=== PATIENT | male | born 2000 | race Caucasian/White ===

== ENCOUNTER 2025-09-22 21:24 | Emergency (ER) | payer OTHER ==
[~2025-09-22] VITALS: Ht 175.3 cm; Wt 73.9 kg
[2025-09-23 04:38] LABS: BASO # 0.1 10^3/uL (0.0-0.2); BASO % 1.2 % (0.0-1.0); EOS # 0.1 10^3/uL (0.0-0.5); EOS % 2.8 % (0.0-3.0); LYMPH # 1.7 10^3/uL (1.5-5.0); LYMPH % 34.3 % (24.0-44.0); MONO # 0.5 10^3/uL (0.0-0.8); MONO % 10.1 % (2.0-8.0); NEUTROPHILS # 2.6 10^3/uL (1.5-8.5); NEUTROPHILS % 51.2 % (36.0-66.0); PLATELET COUNT, AUTOMATED 154 10^3/uL (150-450)
[2025-09-23 05:02] LABS: C REACTIVE PROTEIN QUANTITATIV < 0.50 MG/DL (<1.0); CALCIUM LEVEL 9.2 MG/DL (8.5-10.1); CARBON DIOXIDE LEVEL 25 MMOL/L (20-31); CHLORIDE LEVEL 103 MMOL/L (98-107); CREATININE FOR GFR 0.74 MG/DL (0.70-1.30); GLOMERULAR FILTRATION RATE > 90.0 (>60); POTASSIUM SERUM 3.9 MMOL/L (3.5-5.1); SODIUM LEVEL 142 MMOL/L (136-145)
[2025-09-23] MEDS ORDERED: CEPH500C PO (06:28)
[2025-09-23] MEDS: KETOROLAC 30 MG/ML 1 ML VIAL IV ONE (06:45)
[2025-09-23] MEDS: CEPHALEXIN 500 MG CAP PO ONE (06:45)
[2025-09-23] MEDS: traMADol 50 MG TAB PO ONE (07:20)
[2025-09-23] MEDS ORDERED: TRAM50TA2 PO (07:43)
[2025-09-23 08:50] VITALS: BP 138/91; TEMP 98.5; O2SAT 99
[2025-09-26 17:18] LABS: BORRELIA SPECIES DNA NOT DETECTED (NOT DETECT)
[2025-09-26 21:07] LABS: LYME TOTAL ANTIBODY CIA <= 0.90 Index (<=0.90)
== END 2025-09-23 08:52 | disposition home or self-care (01) ==
LOC: M ED 21:24
DX: L03.115 Cellulitis of right lower limb (principal); M54.9 Dorsalgia, unspecified
CPT/HCPCS: 80048; 85025; 85652; 86140; 86618; 87468; 87469; 87478; 87484; 87801; 93971; 96374; 99283; J1885